=== PATIENT | female | born 1980 | race Two or more races ===

== ENCOUNTER 2021-10-22 13:10 | Emergency (ER) | payer MEDICAID, OTHER ==
[~2021-10-22] VITALS: Ht 157.5 cm; Wt 77.1 kg
[2021-10-22 13:33] VITALS: BP 138/100
[2021-10-22] MEDS ORDERED: ALPRAZolam 0.5 MG TAB PO ONE (14:45)
== END 2021-10-22 18:28 | disposition home or self-care (01) ==
LOC: ER 13:10
DX: F41.1 Generalized anxiety disorder (principal)

== ENCOUNTER 2022-02-24 02:30 | Emergency (ER) | payer MEDICAID | END 2022-02-24 04:00 | disposition left against medical advice (07) | LOC: ER 02:30 | DX: T15.92XA Foreign body on external eye, part unspecified, left eye, initial encounter (principal); Z53.21 Procedure and treatment not carried out due to patient leaving prior to being seen by health care provider; X58.XXXA Exposure to other specified factors, initial encounter; Y93.89 Activity, other specified; Y92.89 Other specified places as the place of occurrence of the external cause; Y99.9 Unspecified external cause status ==